=== PATIENT | male | born 1935 | race Caucasian/White ===

== ENCOUNTER 2016-10-27 10:18 | Emergency (ER) | payer OTHER ==
[~2016-10-27] VITALS: Ht 185.4 cm; Wt 75.8 kg
[~2016-10-27 10:18] MED LIST: ADULT LOW DOSE81 M1 PO; AVODART0.5 MG PO; CALCIUM 500 MG1 EACH PO; CARDIZEM CD240 MG PO; DAILY MULTIPLE1 EACH PO; FISH OIL 1,2001 EAC1 PO; LIPITOR40 MG PO; LISINOPRIL-HCT1 EAC3 PO; METFORMIN HCL500 MG PO; NIASPAN500 MG PO; NORCO 7.5/321 TABLET PO; PROSTATE PO; VITAMIN D31000 UNIT PO; ZESTORETIC 20-1 EACH PO; Zestoretic,Prinzide PO
[2016-10-27 12:37] LABS: HEMATOCRIT 36.7 % (38.0-50.0); MCH 29.6 PG (29.0-34.0); MCHC 33.2 G/DL (30.0-36.0); MCV 89.1 FL (86-99); MEAN PLAT.VOLUME 8.7 uM^3 (9.0-12.4); PLATELET COUNT 245 K/uL (156-360); RBC DIS.WIDTH-CV 13.5 % (11.8-14.6); RBC DIS.WIDTH-SD 43.8 % (39-53); RED BLOOD COUNT 4.12 M/uL (4.00-5.50); WHITE BLOOD COUNT 7.6 K/uL (4.1-10.2)
[2016-10-27 12:48] LABS: CHLORIDE 107 mEq/L (99-109); POTASSIUM 3.8 mEq/L (3.7-5.4); SODIUM 139 mEq/L (136-147)
[2016-10-27 12:49] LABS: GLUCOSE 104 mg/dL (70-99)
[2016-10-27 12:51] LABS: ANION GAP 9 MEQ/L (2-14)
[2016-10-27 12:53] LABS: GFR ESTIMATE (CALCULATED) 44 mL/min/
[2016-10-27 12:54] LABS: UREA NITROGEN (BUN) 24 mg/dL (9-23)
[2016-10-27] MEDS ORDERED: FLEXERIL5 MG PO (13:04)
[2016-10-27 13:13] VITALS: BP 165/63
== END 2016-10-27 13:13 | disposition home or self-care (01) ==
LOC: EME 10:18
PROVIDERS: Physician Assistant
DX: S00.33XA Contusion of nose, initial encounter (principal); S09.90XA Unspecified injury of head, initial encounter; S39.012A Strain of muscle, fascia and tendon of lower back, initial encounter; I12.9 Hypertensive chronic kidney disease with stage 1 through stage 4 chronic kidney disease, or unspecified chronic kidney disease; N18.9 Chronic kidney disease, unspecified; V49.40XA Driver injured in collision with unspecified motor vehicles in traffic accident, initial encounter; E11.22 Type 2 diabetes mellitus with diabetic chronic kidney disease; E78.5 Hyperlipidemia, unspecified; Z79.84 Long term (current) use of oral hypoglycemic drugs; Z88.6 Allergy status to analgesic agent; Z88.2 Allergy status to sulfonamides
CPT/HCPCS: 70450; 70486; 72100; 80048; 85027; 99281; 99284